=== PATIENT | male | born 1965 | race Native Hawaiian/Other Pacific Islander ===

== ENCOUNTER 2023-04-11 12:25 | Observation (INO) | payer OTHER ==
[2023-04-11] VITALS (16 sets, daily range): BP systolic 111–157; BP diastolic 61–104; TEMP 97.7–98.3; Ht 172.7 cm; Wt 94.8 kg
[~2023-04-11] VITALS: Ht 172.7 cm; Wt 94.8 kg
[2023-04-11 12:48] LABS: PLATELET COUNT 222 K/uL (142-355)
[2023-04-11 12:58] LABS: POTASSIUM 3.8 mmol/L (3.6-5.2)
[2023-04-12] VITALS: BP 111/61; TEMP 97.4
[2023-04-12 03:50] VITALS: BP 97/56; TEMP 98.4
[2023-04-12 05:06] LABS: PLATELET COUNT 181 K/uL (142-355)
[2023-04-12 08:00] VITALS: BP 125/64; TEMP 97.6
[2023-04-12] MEDS ORDERED: HYDROXYZINE HYD10 MG PO (08:59)
[2023-04-12] MEDS ORDERED: LISI10TA11 PO (09:00)
[2023-04-12] MEDS ORDERED: TRILEPTAL150 MG PO (09:00)
[2023-04-12] MEDS ORDERED: FLUOXETINE20 MG PO (09:00)
[2023-04-12] MEDS ORDERED: MECLIZINE25 MG PO (09:58)
== END 2023-04-12 11:41 | disposition home or self-care (01) ==
LOC: ED 12:25 → MED/SURG 16:11
PROVIDERS: Family Medicine; ADMIT Nurse Practitioner Family; ATTEND Internal Medicine
DX: R42 Dizziness and giddiness (principal); I10 Essential (primary) hypertension; N17.8 Other acute kidney failure; F31.9 Bipolar disorder, unspecified; F17.210 Nicotine dependence, cigarettes, uncomplicated
CPT/HCPCS: 36415; 80053; 84484; 85027; 93005; 96360; 96361; 99221; 99283; G0378; J7120